=== PATIENT | male | born 1940 | race Caucasian/White ===

== ENCOUNTER → 2016-05-06 | Day surgery (SDC) | payer MEDICARE, BC | END | disposition home or self-care (01) | LOC: EKG 10:19 | DX: D12.3 Benign neoplasm of transverse colon (principal); K44.9 Diaphragmatic hernia without obstruction or gangrene; K63.5 Polyp of colon; K57.30 Diverticulosis of large intestine without perforation or abscess without bleeding; D64.9 Anemia, unspecified; K64.8 Other hemorrhoids; I10 Essential (primary) hypertension; F17.210 Nicotine dependence, cigarettes, uncomplicated; Z87.19 Personal history of other diseases of the digestive system; Z79.82 Long term (current) use of aspirin; Z79.899 Other long term (current) drug therapy | CPT/HCPCS: J1610; J2704 ==